=== PATIENT | male | born 1970 | race Caucasian/White ===

== ENCOUNTER 2020-01-20 22:40 | Emergency (ER) | payer MEDICAID ==
[~2020-01-20] VITALS: Ht 175.3 cm; Wt 116.1 kg
[2020-01-21 01:05] VITALS: BP 139/77
== END 2020-01-21 01:05 | disposition home or self-care (01) ==
LOC: ED 22:40
DX: S43.402A Unspecified sprain of left shoulder joint, initial encounter (principal); X58.XXXA Exposure to other specified factors, initial encounter; Y93.9 Activity, unspecified; Y92.89 Other specified places as the place of occurrence of the external cause; Y99.8 Other external cause status
CPT/HCPCS: J1885; Q0092

== ENCOUNTER 2020-01-29 18:40 | Emergency (ER) | payer OTHER, MEDICAID ==
[~2020-01-29] VITALS: Ht 175.3 cm; Wt 116.1 kg
[2020-01-29 18:56] VITALS: BP 123/72; Ht 175.3 cm; Wt 116.1 kg
== END 2020-01-29 20:14 | disposition home or self-care (01) ==
LOC: ED 18:40
DX: S80.11XA Contusion of right lower leg, initial encounter (principal); S50.311A Abrasion of right elbow, initial encounter; V23.4XXA Motorcycle driver injured in collision with car, pick-up truck or van in traffic accident, initial encounter; Y93.79 Activity, other specified sports and athletics; Y92.89 Other specified places as the place of occurrence of the external cause; Y99.8 Other external cause status
CPT/HCPCS: 90715; J1885; Q0092